=== PATIENT | male | born 1990 | race Two or more races ===

== ENCOUNTER 2023-02-26 18:52 | Emergency (ER) | payer OTHER ==
[~2023-02-26] VITALS: Ht 152.4 cm; Wt 98.1 kg
[2023-02-26] MEDS ORDERED: HYDROcodone-ACET 5/325MG TAB PO ONE (23:00)
[2023-02-26] MEDS ORDERED: AMOXICILLIN/CLAVUL 875 MG TAB PO ONE (23:00)
[2023-02-26] MEDS ORDERED: cefTRIAXone SOD 1,000 MG VL IM ONE (23:15)
[2023-02-26] MEDS ORDERED: OFL50TS OT (23:20)
[2023-02-26] MEDS ORDERED: HYDR-4902 PO (23:20)
[2023-02-26] MEDS ORDERED: AUG875T PO (23:20)
[2023-02-26] MEDS ORDERED: DexAMETHasone SOD PHOS 10MG/1ML VIAL INJ IM ONE (23:30)
[2023-02-27 00:25] VITALS: BP 132/78; PULSE 87; RESP 18; TEMP 98.8; O2SAT 97
== END 2023-02-27 00:25 | disposition home or self-care (01) ==
LOC: ER 18:52
DX: H66.92 Otitis media, unspecified, left ear (principal); J03.90 Acute tonsillitis, unspecified; R59.1 Generalized enlarged lymph nodes; M50.30 Other cervical disc degeneration, unspecified cervical region
CPT/HCPCS: 70486; 70490; 96372; 99285; J0696; J1100